=== PATIENT | female | born 2000 | race American Indian/Alaskan Native ===

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

== ENCOUNTER 2021-05-11 16:59 | Emergency (ER) | payer MEDICAID ==
[2021-05-11] MEDS ORDERED: ONDANSETRON 4 MG/2 ML INJ ONE (22:58)
[2021-05-11] MEDS ORDERED: MORPHINE 4 MG/1 ML INJ ONE (22:58)
== END 2021-05-11 19:00 | disposition left against medical advice (07) ==
LOC: ED 16:59
DX: R10.2 Pelvic and perineal pain (principal); Z53.21 Procedure and treatment not carried out due to patient leaving prior to being seen by health care provider
CPT/HCPCS: J2270; J2405